=== PATIENT | male | born 1985 | race Hispanic/Latino ===

== ENCOUNTER 2024-03-31 21:58 | Emergency (ER) | payer OTHER ==
[2024-03-31] MEDS ORDERED: Lidocaine 1% w/Epinephrine 1:100K 20 ML VIAL ONE (22:46)
[2024-03-31] MEDS ORDERED: Bacitracin 1 PK ONE (23:04)
== END 2024-03-31 23:15 ==
LOC: NAV ERS 21:58
DX: S01.01XA Laceration without foreign body of scalp, initial encounter (principal); W01.10XA Fall on same level from slipping, tripping and stumbling with subsequent striking against unspecified object, initial encounter; Y93.73 Activity, racquet and hand sports
CPT/HCPCS: 12001; 99282